=== PATIENT | male | born 1950 | race Hispanic/Latino ===

== ENCOUNTER 2016-08-06 06:02 | Day surgery (SDC) | payer BC, MEDICARE ==
[2016-08-06 07:05] LABS: CALCIUM 9.1 mg/dL (8.4-10.5); POTASSIUM 3.8 mmol/L (3.6-5.0)
[2016-08-06] MEDS ORDERED: Bupivacaine 0.5% Inj(30mL) ONE (07:21)
[2016-08-06] MEDS ORDERED: Lidocaine 1% Inj (20ml) ONE (07:22)
[2016-08-06] MEDS ORDERED: Propofol 10 mg/ml Inj (20 ML) ONE ×2 (07:57→08:59)
[2016-08-06] MEDS ORDERED: Ciprofloxacin 400mg/200ml D5W 0 MG/0 ML BAG IVPB ONE (08:10)
[2016-08-06] MEDS ORDERED: Sevoflurane - Inhalation Anesthetic Liq (250 ml) ONE (08:16)
[2016-08-06] MEDS ORDERED: Bacitracin Ointment 30 GM TUBE ONE (08:40)
[2016-08-06 08:56] VITALS: BMI 35.5
[2016-08-06] MEDS ORDERED: Oxycodone/Acetaminophen 5/325 mg Tab PO PRN (09:08)
--- NOTE | 2016-08-06 09:08 | PCM.SURG1 ---
Surgeon's Initial Post Op Note - Surgeon's Notes Surgeon: Dr. Plunkett Poker Machine Attendant: Dr. Serrano PGY-2 Type of Anesthesia: IV Sedation Anesthesia Administered By: Dr. Ortiz Pre-Operative Diagnosis: Infected peritoneal dialyais catheter Operative Findings: See operative report Post-Operative Diagnosis: Same Operation Performed: Removal of peritoneal dilaysis catheter Specimen/Specimens Removed: dialysis catheter Estimated Blood Loss: EBL {In ML}: 2 Blood Products Given: N/A Drains Used: No Drains Post-Op Condition: Good Date of Surgery/Procedure: 08/06/16 Time of Surgery/Procedure: 09:08
[2016-08-06] MEDS ORDERED: Sodium Chloride 0.9% 1,000 ML IV SCH (09:10)
--- NOTE | 2016-08-06 09:55 | OP ---
PROCEDURE DATE: 08/06/2016 PREOPERATIVE DIAGNOSIS: Malfunctioning infected peritoneal dialysis catheter. POSTOPERATIVE DIAGNOSIS: Malfunctioning infected peritoneal dialysis catheter. PROCEDURE PERFORMED: Removal of the tunneled peritoneal dialysis catheter. SURGEON: Bautista Plunkett MD. APPAREL PATTERNMAKER: Dr. Serrano. ANESTHESIOLOGIST: Dr. Ortiz. ANESTHESIA: MAC and local anesthesia. ESTIMATED BLOOD LOSS: Minimal. SPECIMEN: Peritoneal dialysis catheter. INDICATION: The patient is a 65-year-old male with end-stage renal disease on peritoneal dialysis, who was on peritoneal dialysis, currently on hemodialysis. The patient had recurrent fevers and positive blood cultures, and the decision was made to proceed with removal of the peritoneal dialysis catheter as requested by ID. DESCRIPTION OF PROCEDURE: The patient was brought to the operating room and placed on the operating table in supine position. The patient was connected to EKG, blood pressure, and pulse oximeter monitors. The patient then underwent MAC anesthesia and was prepped and draped in the usual sterile fashion. First, a standard timeout procedure took place where everybody in the room agreed as to the patient's identity, diagnosis, and procedure to be performed. Using lidocaine mixed with Marcaine, the areas of dialysis catheter cuffs were infiltrated, and an incision was made at the bend of the catheter, and at the entry into peritoneum. Through the incisions, the catheter was elevated, and the cuffs around the catheter were freed up. Now the intra-abdominal portion of the catheter was pulled out and sent as specimen for culture. Next, the bend of the catheter was also freed up, and the remaining portion of the catheter was removed. This was also sent for pathology as a gross pathology. The wounds were now copiously irrigated and closed in layers using 3-0 Vicryl for the fat layer, 3-0 Vicryl for deep dermal layer, and 4-0 Monocryl for skin. At the lower incision close to the peritoneal incision through the fascia, the fascia was reapproximated using 2-0 Vicryl stitches. The patient tolerated the procedure well, and there were no complications. The patient was awakened and transferred to recovery room for further observation. Bautista Plunkett MD cc: [id number] TT: 08/06/2016 09:54:25 jn KATIE
[2016-08-06 10:14] VITALS: RESP 20; TEMP 98.3; O2SAT 98
[2016-08-06 11:05] VITALS: BP 126/70; PULSE 59
== END 2016-08-06 12:30 | disposition home or self-care (01) ==
LOC: SDS 06:02
PROVIDERS: ATTEND General Practice
DX: T85.71XA Infection and inflammatory reaction due to peritoneal dialysis catheter, initial encounter (principal); I12.0 Hypertensive chronic kidney disease with stage 5 chronic kidney disease or end stage renal disease; E11.22 Type 2 diabetes mellitus with diabetic chronic kidney disease; N18.6 End stage renal disease; I25.10 Atherosclerotic heart disease of native coronary artery without angina pectoris; E66.9 Obesity, unspecified; Z88.0 Allergy status to penicillin; Z88.8 Allergy status to other drugs, medicaments and biological substances; B96.89 Other specified bacterial agents as the cause of diseases classified elsewhere; Z99.2 Dependence on renal dialysis; Z68.32 Body mass index [BMI] 32.0-32.9, adult
CPT/HCPCS: 36415; 49422; 80048; 87070; 87075; 88300; J2405; J2704; J3010; J7040

== ENCOUNTER 2017-06-22 06:47 | Day surgery (SDC) | payer BC, MEDICARE ==
[2017-06-22 07:43] VITALS: O2SAT 98
[2017-06-22 07:53] LABS: ALT/SGPT 34 U/L (7-56); HDL CHOLESTEROL 57 mg/dL (29-60)
[2017-06-22 08:03] LABS: LDL CHOLESTEROL 61 mg/dL (0-129)
[2017-06-22] MEDS ORDERED: Lidocaine 1% Inj (20ml) ONE (08:29)
[2017-06-22] MEDS ORDERED: Propofol 10 mg/ml Inj (20 ML) ONE ×3 (08:29→09:54)
[2017-06-22] MEDS ORDERED: ePHEDrine 50 mg/ml Inj ONE (09:02)
[2017-06-22] MEDS ORDERED: Morphine 1 mg/ml preservative-free Inj(Duramorph) ONE (09:12)
[2017-06-22] MEDS ORDERED: Midazolam 2 MG/2 ML VIAL ONE ×2 (09:12→09:18)
[2017-06-22] MEDS ORDERED: Sodium Chloride 0.9% 1,000 ML IV SCH (10:30)
[2017-06-22 11:10] VITALS: BP 121/49; PULSE 70; RESP 14; TEMP 97.4
== END 2017-06-22 12:00 | disposition home or self-care (01) ==
LOC: ENDO 06:47
PROVIDERS: ATTEND Internal Medicine Gastroenterology
DX: K21.0 Gastro-esophageal reflux disease with esophagitis (principal); K29.50 Unspecified chronic gastritis without bleeding; K51.90 Ulcerative colitis, unspecified, without complications; K63.89 Other specified diseases of intestine; K44.9 Diaphragmatic hernia without obstruction or gangrene; K64.8 Other hemorrhoids; K57.30 Diverticulosis of large intestine without perforation or abscess without bleeding
CPT/HCPCS: 36415; 43239; 45380; 80061; 82948; 84460; 88305; 88312; 88342; J2250; J2704; J7040 ×2

== ENCOUNTER 2018-07-18 07:52 | Day surgery (SDC) | payer MEDICARE, BC | END 2018-07-18 13:17 | disposition home or self-care (01) | LOC: ENDO 07:52 | DX: K21.9 Gastro-esophageal reflux disease without esophagitis (principal); K51.90 Ulcerative colitis, unspecified, without complications ==